=== PATIENT | female | born 1940 | race Caucasian/White ===

== ENCOUNTER 2016-11-20 22:34 | Observation (INO) | payer MEDICARE, BC ==
[2016-11-20] MEDS ORDERED: diphenhydrAMINE 50 MG/ML SDV IVPUSH ONE (22:39)
[2016-11-20] MEDS ORDERED: methylPREDNISolone Sodium Succinate 125 MG/2 ML SDV IVPUSH ONE (22:40)
[2016-11-20] MEDS ORDERED: Famotidine 20 MG/2 ML SDV IVPUSH ONE (22:57)
--- NOTE | 2016-11-20 23:03 | EDM.PDOC ---
ED HPI GENERAL MEDICAL PROBLEM - General Chief Complaint: General Stated Complaint: swollen tongue Time Seen by Provider: 11/20/16 22:40 Source of Information: Reports: Patient, Family History Limitations: Reports: No Limitations - History of Present Illness INITIAL COMMENTS - FREE TEXT/NARRATIVE: 75 YO WF presents to ER with swelling to right side of tongue which began 5pm tonight. Pt reports no difficulty breathing or swallowing but her tongue feels "full". Pt is currently on Diovan for Htn. Pt denies any trauma to tongue. Denies fever/chills Onset Date: 11/20/16 Onset Time: 17:00 Duration: Hour(s): (6) Location: Reports: Other (tongue) Severity: Moderate Improves with: Reports: None Worsens with: Reports: None Associated Symptoms: Reports: No Other Symptoms. Denies: Shortness of Breath - Related Data Allergies Allergy/AdvReac Type Severity Reaction Status Date / Time latex Allergy Hives Verified 11/20/16 23:09 lisinopril Allergy Hives Verified 11/20/16 23:09 Sulfa (Sulfonamide Allergy Hives Verified 11/20/16 23:09 Antibiotics) Home Meds: Home Meds Allopurinol [Zyloprim] 200 mg PO DAILY@209905/04/15 [History] Aspirin [Halfprin] 81 mg PO DAILY@209905/04/15 [History] Calcitriol [Rocaltrol] 0.25 mcg PO BEDTIME 05/04/15 [History] Dialyvite/Zinc Tablets 1 tab PO DAILY@209905/04/15 [History] Diltiazem [Cardizem CD] 120 mg PO DAILY@209905/04/15 [History] Ferrous Sulfate [Iron] 325 mg PO DAILY@209905/04/15 [History] Pravastatin Sodium [Pravastatin (Pravachol)] 40 mg PO DAILY@209905/04/15 [ History] Docusate Sodium [Colace] 100 mg PO DAILY #90 cap 05/07/15 [Rx] Fluocinonide [Lidex 0.05% Crm] 1 applic TOP BID PRN 02/23/16 [History] Warfarin [Coumadin] 1.25 mg PO MO@179902/23/16 [History] Warfarin [Coumadin] 2.5 mg PO SUTUWETHFRSA@179902/23/16 [History] Acetaminophen [Tylenol Arthritis Pain] 650 mg PO Q8H #180 tab.er 03/08/16 [Rx] traMADol [Ultram] 1 tab PO BID PRN #60 tablet 03/08/16 [Rx] Carvedilol [Carvedilol] 3.125 mg PO BID 11/20/16 [History] Methyl Salicylate/Menthol [Salonpas Patch] 1 each TP DAILY 11/20/16 [History] Phytonadione [Vitamin K] 200 mcg PO DAILY 11/20/16 [History] Sertraline HCl [Zoloft] 50 mg PO DAILY 11/20/16 [History] Valsartan [Diovan] 20 mg PO DAILY 11/20/16 [History] glipiZIDE [Glucotrol XL] 2.5 mg PO DAILY@1800 11/20/16 [History] Past Medical History HEENT History: Reports: Hard of Hearing, Impaired Vision, Macular Degeneration Cardiovascular History: Reports: Afib, Aneurysm, High Cholesterol, Hypertension , Other (See Below) Other Cardiovascular History: edema Gastrointestinal History: Reports: Chronic Constipation Genitourinary History: Reports: Acute Renal Failure, Chronic Renal Insuffiency, Dialysis, Renal Calculus Musculoskeletal History: Reports: Arthritis, Back Pain, Chronic Endocrine/Metabolic History: Reports: Diabetes, Type II, Hyperparathyroidism Hematologic History: Reports: Anemia, Blood Transfusion(s) Dermatologic History: Reports: Eczema - Infectious Disease History Infectious Disease History: Reports: Chicken Pox, Measles, Mumps - Past Surgical History Cardiovascular Surgical History: Reports: AAA Repair Female Surgical History: Reports: Hysterectomy, Lithotripsy/ESWL, Salpingo- Oophorectomy Social & Family History - Family History Family Medical History: Noncontributory - Tobacco Use Smoking Status *Q: Former Smoker Years of Tobacco use: 50 Packs/Tins Daily: 1.5 Used Tobacco, but Quit: Yes Month Tobacco Last Used: 2008 Second Hand Smoke Exposure: No - Caffeine Use Caffeine Use: Reports: Soda - Recreational Drug Use Recreational Drug Use: No ED ROS GENERAL - Review of Systems Review Of Systems: See Below Constitutional: Reports: No Symptoms HEENT: Reports: Other (tongue swelling). Denies: Throat Pain, Throat Swelling Cardiovascular: Reports: No Symptoms Endocrine: Reports: No Symptoms GI/Abdominal: Reports: No Symptoms : Reports: No Symptoms Musculoskeletal: Reports: No Symptoms Skin: Reports: No Symptoms Neurological: Reports: No Symptoms Psychiatric: Reports: No Symptoms Hematologic/Lymphatic: Reports: No Symptoms Immunologic: Reports: No Symptoms ED EXAM, GENERAL - Physical Exam Exam: See Below Exam Limited By: No Limitations General Appearance: Alert, WD/WN, No Apparent Distress Ears: Normal External Exam, Normal Canal, Hearing Grossly Normal, Normal TMs Nose: Normal Inspection, Normal Mucosa, No Blood Throat/Mouth: Normal Lips, Normal Teeth, Normal Gums, No Airway Compromise, Inflammation (swelling to uvula, and right side of tongue). No: Normal Inspection, Normal Oropharynx Head: Atraumatic, Normocephalic Neck: Normal Inspection, Supple, Non-Tender, Full Range of Motion Respiratory/Chest: No Respiratory Distress, Lungs Clear, Normal Breath Sounds, No Accessory Muscle Use, Chest Non-Tender. No: Decreased Breath Sounds, Rhonchi , Stridor, Accessory Muscle Use Cardiovascular: Normal Peripheral Pulses, Regular Rate, Rhythm, No Edema, No Gallop, No JVD, No Murmur, No Rub GI/Abdominal: Normal Bowel Sounds, Soft, Non-Tender, No Organomegaly, No Distention, No Abnormal Bruit, No Mass Back Exam: Normal Inspection, Full Range of Motion, NT Extremities: Normal Inspection, Normal Range of Motion, Non-Tender, Normal Capillary Refill, No Pedal Edema Neurological: Alert, Oriented, CN II-XII Intact, Normal Cognition, Normal Gait, Normal Reflexes, No Motor/Sensory Deficits Psychiatric: Normal Affect, Normal Mood Skin Exam: Warm, Dry, Intact, Normal Color, No Rash Course - Vital Signs Last Recorded V/S: Last Vital Signs Temp 36.1 C 11/20/16 23:04 Pulse 74 11/20/16 23:04 Resp 16 11/20/16 23:04 BP 106/106 H 11/20/16 23:04 Pulse Ox 97 11/20/16 23:04 - Orders/Labs/Meds Meds: Medications Discontinued Medications Generic Name Dose Route Start Last Admin Trade Name Freq PRN Reason Stop Dose Admin Diphenhydramine HCl 50 mg 11/20/16 22:39 11/20/16 23:03 Benadryl IVPUSH 11/20/16 22:40 50 mg ONETIME ONE Administration Epinephrine HCl 1 mg 11/20/16 23:18 Adrenalin 1:1000 IVPUSH 11/20/16 23:19 NOW ONE Epinephrine HCl 0.3 mg 11/20/16 23:24 Epipen IM 11/20/16 23:25 ONETIME ONE Epinephrine HCl Confirm 11/20/16 23:24 Epipen Administered 11/20/16 23:25 Dose 0.3 mg .ROUTE .STK-MED ONE Famotidine 20 mg 11/20/16 22:57 11/20/16 23:00 Pepcid IVPUSH 11/20/16 22:58 20 mg ONETIME ONE Administration Methylprednisolone Sodium Succinate 125 mg 11/20/16 22:40 11/20/16 23:03 Solu-Medrol IVPUSH 11/20/16 22:41 125 mg ONETIME ONE Administration Departure - Departure Time of Disposition: 23:49 Disposition: Refer to Observation Condition: Fair Clinical Impression: Angioedema Qualifiers: Encounter type: initial encounter Qualified Code(s): T78.3XXA - Angioneurotic edema, initial encounter Hypertension Qualifiers: Hypertension type: essential hypertension Qualified Code(s): I10 - Essential ( primary) hypertension - Discharge Information Forms: ED Department Discharge - Assessment/Plan Assessment:: 1. angioedema Plan: 1. admit to Dr Donohue for observation due to tongue swelling 2. nitro for blood pressure control
[2016-11-20] MEDS ORDERED: EPINEPHrine 1 MG/ML 30 ML MDV IVPUSH ONE (23:18)
[2016-11-20] MEDS ORDERED: EPINEPHrine 0.3 MG/0.3 ML Pen Autoinjector IM ONE (23:24)
[2016-11-20] MEDS ORDERED: EPINEPHrine 0.3 MG/0.3 ML Pen Autoinjector ONE (23:24)
[2016-11-20] MEDS ORDERED: Sodium Chloride 0.9% 1,000 ML IV SCH (23:45)
[2016-11-20] MEDS ORDERED: Nitroglycerin 2% Oint 1 GM UD Packet ONE (23:46)
[2016-11-20] MEDS ORDERED: Sodium Chloride 0.9% 5 ML Syringe FLUSH PRN (23:51)
[2016-11-20] MEDS ORDERED: Nitroglycerin 0.4 MG Tab.SL SL PRN (23:55)
[2016-11-21] MEDS: Nitroglycerin 2% Oint 1 GM UD Packet TOP PRN ×2 (00:02→07:46)
[2016-11-21] MEDS ORDERED: Atropine 0.1 MG/ML 10 ML Syringe IVPUSH PRN (08:47)
[2016-11-21] MEDS ORDERED: EPINEPHrine 1:10,000 1 MG/10 ML Syringe IVPUSH PRN (08:47)
[2016-11-21] MEDS ORDERED: Nitroglycerin 0.4 MG Tab.SL SL PRN (08:47)
[2016-11-21] MEDS ORDERED: Lidocaine 2% 100 MG/5 ML Syringe IVPUSH PRN (08:47)
[2016-11-21] MEDS ORDERED: Labetalol 100 MG/20 ML MDV IVPUSH ONE ×2 (10:10→10:15)
[2016-11-21] MEDS ORDERED: traMADol 50 MG Tab PO PRN (12:33)
--- NOTE | 2016-11-21 12:40 | PCM.HP ---
H&P History of Present Illness - General Date of Service: 11/21/16 Source of Information: Patient, Provider, RN, Significant Other History Limitations: Reports: No Limitations - History of Present Illness Initial Comments - Free Text/Narative: This 75-year-old female who is a resident of a long-term care center was admitted due to angioedema. Patient stated she had significant swelling of her tongue early evening last night however no stridor or difficulty breathing. He is currently on ARB for hypertension along with beta alejandro. Had no fever or chills and no aspiration. In the ED she was given epinephrine, diphenhydramine hydrochloride, H2 Pepcid with good results. She was admitted observation. She does have a history of hypertension in which she is being followed closely by nephrology. Back Pain Score (Numeric/FACES): 3 - Related Data Allergies/Adverse Reactions: Allergies Allergy/AdvReac Type Severity Reaction Status Date / Time latex Allergy Hives Verified 11/20/16 23:09 lisinopril Allergy Hives Verified 11/20/16 23:09 Sulfa (Sulfonamide Allergy Hives Verified 11/20/16 23:09 Antibiotics) Home Medications: Home Meds Allopurinol [Zyloprim] 100 mg PO DAILY@209905/04/15 [History] Aspirin [Halfprin] 81 mg PO DAILY@209905/04/15 [History] Calcitriol [Rocaltrol] 0.25 mcg PO MOWEFR@89905/04/15 [History] Dialyvite/Zinc Tablets 1 tab PO DAILY@209905/04/15 [History] Ferrous Sulfate [Iron] 325 mg PO DAILY 05/04/15 [History] Pravastatin Sodium [Pravastatin (Pravachol)] 40 mg PO DAILY 05/04/15 [History] Docusate Sodium [Colace] 100 mg PO DAILY #90 cap 05/07/15 [Rx] Fluocinonide [Lidex 0.05% Crm] 1 applic TOP BID PRN 02/23/16 [History] Warfarin [Coumadin] 2.5 mg PO SUTUTHSA@1800 02/23/16 [History] Warfarin [Coumadin] 5 mg PO MOWEFR@179902/23/16 [History] Acetaminophen [Tylenol Arthritis Pain] 650 mg PO Q8H #180 tab.er 03/08/16 [Rx] Carvedilol 3.125 mg PO BIDMEALS 11/20/16 [History] Methyl Salicylate/Menthol [Salonpas Patch] 1 each TP DAILY 11/20/16 [History] Phytonadione [Vitamin K] 200 mcg PO DAILY 11/20/16 [History] Sertraline HCl [Zoloft] 50 mg PO DAILY 11/20/16 [History] Vits A and D/White Pet/Lanolin [A and D Ointment] 1 applic TOP DAILY 11/21/16 [ History] glipiZIDE [Glucotrol] 2.5 mg PO DAILY@1800 11/21/16 [History] traMADol [Ultram] 50 mg PO BID PRN 11/21/16 [History] Diltiazem [Cardizem CD] 180 mg PO DAILY #30 11/22/16 [Rx] Past Medical History HEENT History: Reports: Hard of Hearing, Impaired Vision, Macular Degeneration Cardiovascular History: Reports: Afib, Aneurysm, High Cholesterol, Hypertension , Other (See Below) Other Cardiovascular History: edema Gastrointestinal History: Reports: Chronic Constipation Genitourinary History: Reports: Acute Renal Failure, Chronic Renal Insuffiency, Dialysis, Renal Calculus Musculoskeletal History: Reports: Arthritis, Back Pain, Chronic Endocrine/Metabolic History: Reports: Diabetes, Type II, Hyperparathyroidism Hematologic History: Reports: Anemia, Blood Transfusion(s) Dermatologic History: Reports: Eczema - Infectious Disease History Infectious Disease History: Reports: Chicken Pox, Measles, Mumps - Past Surgical History Head Surgeries/Procedures: Reports: None Cardiovascular Surgical History: Reports: AAA Repair Female Surgical History: Reports: Hysterectomy, Lithotripsy/ESWL, Salpingo- Oophorectomy Social & Family History - Family History Cardiac: Reports: None Respiratory: Reports: None GI: Reports: None : Reports: Other (See Below) (Sister with unknown type of renal disease) OBGYN: Reports: None Musculoskeletal: Reports: None Neurological: Reports: None Psychiatric: Reports: None Endocrine/Metabolic: Reports: Diabetes, type II, Other (See Below) (Both father and sister has/had diabetes, sister still alive,) Hematologic: Reports: None Immunologic: Reports: None Oncologic: Reports: Other (See Below) (Sister with cancer of unknown etiology/ type) - Tobacco Use Smoking Status *Q: Former Smoker Years of Tobacco use: 50 Packs/Tins Daily: 1.5 Used Tobacco, but Quit: Yes Month Tobacco Last Used: 2008 Second Hand Smoke Exposure: No - Caffeine Use Caffeine Use: Reports: Soda - Recreational Drug Use Recreational Drug Use: No H&P Review of Systems - Review of Systems: Review Of Systems: See Below General: Reports: No Symptoms HEENT: Denies: Dysphasia, Headaches, Vertigo, Visual Changes Pulmonary: Reports: No Symptoms Cardiovascular: Reports: No Symptoms Gastrointestinal: Reports: No Symptoms Genitourinary: Reports: No Symptoms Musculoskeletal: Reports: No Symptoms Skin: Reports: No Symptoms Psychiatric: Reports: Depression Neurological: Reports: No Symptoms Hematologic/Lymphatic: Reports: No Symptoms Immunologic: Reports: No Symptoms Exam - Exam Exam: See Below - Vital Signs Vital Signs: Last Vital Signs Temp 96 F 11/21/16 11:00 Pulse 76 11/21/16 11:00 Resp 18 11/21/16 11:00 BP 158/82 H 11/21/16 11:43 Pulse Ox 93 L 11/21/16 11:00 Weight: 187 lb - Exam Quality Assessment: No: Supplemental Oxygen General: Alert, Oriented, Cooperative. No: Mild Distress HEENT: Mucosa Moist & Dows Neck: Supple Lungs: Clear to Auscultation, Normal Respiratory Effort Cardiovascular: Regular Rate, Regular Rhythm GI/Abdominal Exam: Normal Bowel Sounds, Soft, Non-Tender, No Organomegaly, No Distention, No Abnormal Bruit, No Mass, Pelvis Stable (Female) Exam: Deferred Neuro Extensive - Mental Status: Alert, Oriented x3, Memory Intact, Other (Flat affect). No: Normal Mood/Affect Neuro Extensive - Motor, Sensory, Reflexes: CN II-XII Intact Psychiatric: Alert, Depressed, Other (Flat affect, chronic for patient). No: Normal Affect - Patient Data Lab Results Last 24 hrs: Laboratory Results - last 24 hr 11/21/16 11/21/16 11/21/16 Range/Units 07:50 07:50 07:50 WBC 11.4 H (5.0-10.0) 10^3/uL RBC 4.08 (3.80-5.50) 10^6/uL Hgb 12.0 (12.0-16.0) g/dL Hct 36.3 L (37.0-47.0) % MCV 88.9 (82.0-92.0) fL MCH 29.4 (27.0-31.0) pg MCHC 33.1 (32.0-36.0) g/dL RDW 16.1 H (11.5-14.5) % Plt Count 332 H (150-300) 10^3/uL MPV 7.2 L (7.4-10.4) fL Neut % (Auto) 95.2 H (50.0-70.0) % Lymph % (Auto) 3.3 L (20.0-40.0) % Briscoe % (Auto) 0.3 L (2.0-8.0) % Eos % (Auto) 0.2 L (1.0-3.0) % Baso % (Auto) 1.0 (0.0-1.0) % Neut # (Auto) 10.9 H (2.5-7.0) 10^3/uL Lymph # (Auto) 0.4 L (1.0-4.0) 10^3/uL Briscoe # (Auto) 0.0 L (0.1-0.8) 10^3/uL Eos # (Auto) 0.0 L (0.1-0.3) 10^3/uL Baso # (Auto) 0.1 (0.0-0.1) 10^3/uL PT 12.5 H (8.9-11.4) SEC INR 1.2 H (0.9-1.1) Sodium 139 (136-145) mmol/L Potassium 4.3 (3.3-5.3) mmol/L Chloride 101 (98-115) mmol/L Carbon Dioxide 24.0 (21.0-32.0) mmol/L BUN 30 H (6-25) mg/dL Creatinine 1.51 H (0.51-1.17) mg/dL Est Cr Clr Drug Dosing 27.04 mL/min Estimated GFR (MDRD) 34 mL/min Glucose 238 H (70-110) mg/dL Calcium 9.7 (8.7-10.3) mg/dL Result Diagrams: 11/21/16 07:50 11/21/16 07:50 *Q Meaningful Use (ADM) - VTE *Q VTE Criteria *Q: - Stroke *Q Stroke Criteria *Q: - AMI *Q AMI Criteria *Q: Problem List Initiated/Reviewed/Updated: Yes Orders Last 24hrs: Active Orders 24 hr Category Date Time Status Atropine [Atropine 0.1 MG/ML] Med 11/21/16 08:47 Active 0 mg IVPUSH ASDIRECTED PRN EPINEPHrine [EPINEPHrine 1:10,000] Med 11/21/16 08:47 Active 1 mg IVPUSH ASDIRECTED PRN Lidocaine 2% [Xylocaine 2%] Med 11/21/16 08:47 Active 0 mg IVPUSH ASDIRECTED PRN Nitroglycerin [Nitrostat] Med 11/21/16 08:47 Active 0.4 mg SL ASDIRECTED PRN Medication Orders Atropine Sulfate (Atropine 0.1 Mg/Ml) 0 mg IVPUSH ASDIRECTED PRN PRN Reason: Heart Epinephrine HCl (Epinephrine 1:10,000) 1 mg IVPUSH ASDIRECTED PRN PRN Reason: Heart Sodium Chloride (Normal Saline) 1,000 mls @ 100 mls/hr IV ASDIRECTED JOHANN Last Admin: 11/21/16 02:45 Dose: 100 mls/hr Lidocaine HCl (Xylocaine 2%) 0 mg IVPUSH ASDIRECTED PRN PRN Reason: Heart Nitroglycerin (Nitro-Bid 2%) 1 gm TOP Q6H PRN PRN Reason: Chest Pain Last Admin: 11/21/16 07:46 Dose: 1 gm Admin: 11/21/16 00:02 Dose: 1 gm Nitroglycerin (Nitrostat) 0.4 mg SL Q5M PRN PRN Reason: Chest Pain Nitroglycerin (Nitrostat) 0.4 mg SL ASDIRECTED PRN PRN Reason: Heart Sodium Chloride (Syrex Flush) 5 ml FLUSH Q8HR PRN PRN Reason: Keep Vein Open Assessment/Plan Comment:: HISTORY This 75-year-old female who is a resident of a long-term care center was admitted due to angioedema. Patient stated she had significant swelling of her tongue early evening last night however no stridor or difficulty breathing. He is currently on ARB for hypertension along with beta alejandro. Had no fever or chills and no aspiration. In the ED she was given epinephrine, diphenhydramine hydrochloride, H1 Pepcid with good results. She was admitted observation. She does have a history of hypertension in which she is being followed closely by nephrology. Patient needed ongoing care after arrival to the floor and on rounds this morning including IV labetalol push due to extreme hypertension systolic blood pressure greater than 200. Impression/plan Angioedema, much improvement, hold ARB for now, monitor for any airway compromise. No uticaria Hypertension, significant elevation, some improvement with IV labetalol-- careful monitoring needed due to the need for possible concomittant coadministration of epinephrine with beta alejandro. Blood pressure controlled very important due to history of aneurysm (AAA). Continue with CCB Atrial fibrillation, chronic, anticoagulation of Coumadin, CVR, INR subtherapeutic 1.2. She receives concomittant Vit K. increased Coumadin tonight Other chronic medical conditions Diabetes mellitus, on glipizide low-dose, Depression, fairly controlled with Zoloft, Hyperlipidemia, on statin therapy, Peripheral vascular disease Macular degeneration, Chronic renal insufficiency, Osteoarthritis with chronic back pain, Overall plan today, we'll keep in observation today due to possible airway compromise, monitoring of angioedema, and medications to control hypertensive, increase Coumadin the night due to subtherapeutic INR
[2016-11-21] MEDS: Acetaminophen 650 MG Tab.ER PO SCH ×2 (13:25→22:00)
[2016-11-21] MEDS: Diltiazem 120 MG Cap.CD PO SCH (13:27)
[2016-11-21] MEDS: Sertraline 50 MG Tab PO SCH (13:27)
[2016-11-21] MEDS: Docusate Sodium 100 MG Cap PO SCH (13:27)
[2016-11-21] MEDS ORDERED: glipiZIDE 5 MG Tab PO SCH (18:00)
[2016-11-21] MEDS ORDERED: Warfarin 5 MG Tab PO SCH (18:00)
[2016-11-21] MEDS: Carvedilol 6.25 MG Tab PO SCH (18:25)
[2016-11-21] MEDS ORDERED: Simvastatin 20 MG Tab PO SCH (21:00)
[2016-11-21] MEDS ORDERED: Aspirin 81 MG Tab.EC PO SCH (21:00)
[2016-11-21] MEDS ORDERED: Allopurinol 100 MG Tab PO SCH (21:00)
[2016-11-22] MEDS: Acetaminophen 650 MG Tab.ER PO SCH (05:45)
[2016-11-22] MEDS ORDERED: Trolamine Salicylate/Aloe Vera 10% Crm 85 GM Tube TOP PRN (09:00)
[2016-11-22] MEDS ORDERED: Phytonadione 100 MCG Tab PO SCH (09:00)
[2016-11-22] MEDS ORDERED: Calcitriol 0.25 MCG Cap PO SCH (09:00)
[2016-11-22] MEDS ORDERED: Diltiazem 120 MG Cap.CD PO SCH (09:05)
[2016-11-22] MEDS: Docusate Sodium 100 MG Cap PO SCH (09:54)
[2016-11-22] MEDS: Carvedilol 6.25 MG Tab PO SCH (09:54)
[2016-11-22] MEDS: Sertraline 50 MG Tab PO SCH (09:55)
[2016-11-22] MEDS: Diltiazem 120 MG Cap.CD PO SCH (10:56)
[2016-11-22 13:28] VITALS: BP 153/86
--- NOTE | 2016-11-23 07:58 | DISCH ---
FINAL DIAGNOSES: 1. Angioedema, likely angiotensin receptor alejandro induced, much improved; angiotensin receptor alejandro discontinued, increased calcium channel alejandro. 2. Hypertension, some improvement with increase in calcium channel alejandro, angiotensin receptor alejandro now discontinued. OTHER CHRONIC MEDICAL CONDITIONS: 1. Atrial fibrillation, chronic. She is on anticoagulation CVR. INR therapeutic on anticoagulation. 2. Diabetes mellitus, on low-dose glipizide. 3. Depression, fairly controlled with Zoloft. 4. Hyperlipidemia, she is on statin therapy. 5. Peripheral vascular disease. 6. Macular degeneration. 7. Chronic renal insufficiencies and osteoarthritis along with chronic back pain. HISTORY: This 75-year-old female who is a resident of [facility], [place] was admitted due to angioedema. The patient started having significant swelling of her tongue, and she was admitted. Her spouse had noticed that she was talking funny, and he alerted staff at the skilled nursing, and they brought her into the ED. She never had any difficulty breathing or excessive saliva. However, she was treated in the emergency department with diphenhydramine hydrochloride along with epinephrine. She was currently on losartan for hypertension along with beta alejandro that was discontinued as the offending agent. Her swelling went down. She had no fever or chills. No aspiration. She was also given H1 agent of Pepcid. She had good results. She was admitted in observation. She would have been discharged sooner; however, she did have an acute elevation of her blood pressure around 200 systolically, which needed IV labetalol. HOSPITAL COURSE: Hospital course went well. Other than hypertension, she was asymptomatic. No chest pain, no visual acuity, no headaches, no end-organ damage. She was given 20 mg one time of IV labetalol. Her calcium channel alejandro was increased from 120 to 180 mg daily. Her ARB of losartan was discontinued as likely offending agent. She never had any increase in swelling of her tongue since the initial treatment out of the emergency department. LABORATORY DATA: White count slightly elevated at 11.4, non-concerning. INR was subtherapeutic at 1.2, she did have an increase in doses of Coumadin, this will have to be rechecked. Sodium 139, potassium 4.3, BUN 30 with creatinine of 1.51, calcium 9.7. CONSULTATIONS: We will consult with Nephrology regarding opinion on ARB causing angioedema and any other concerns or medication adjustments that may be needed. This information will be communicated to the nursing staff at the skilled nursing. She can be followed up next week with provider over there on rounds. MEDICAL DECISION MAKIN minutes was spent on this discharge planning and process and consultation care coordination. PHYSICAL EXAM ON DISCHARGE: VITAL SIGNS: On discharge, blood pressure improved to 159/86, however, not optimal. Temperature 97.4, heart rate 70, respiratory rate 20. GENERAL: The patient is alert and oriented. Flat affect, which is chronic for her. LUNGS: Clear to auscultation. CARDIOVASCULAR: Irregular rate. EXTREMITIES: No edema in extremities. ABDOMEN: Good bowel tones. HEENT: Tongue, normal parameters. Normal uvula. No lymphadenopathy. MEDICATION ADJUSTMENTS: Discontinued ARB, increased calcium channel alejandro from 120 to 180 mg daily. She can continue on all other home medications. DISPOSITION: The patient will be discharged back to the [facility] Center. Coumadin Clinic will manage the INR, and make any adjustments. INR level prior to her leaving the hospital will be reassessed. They are supposed to report any recurrence of signs of angioedema such as edema to her face, eyes or swelling of her tongue or any stridor, wheezing, excessive saliva. Monitor ongoing vital signs. /[id number]/MODL
== END 2016-11-22 13:15 | disposition home or self-care (01) ==
LOC: KA.ED 22:34 → KA.MS 11-21 00:10
PROVIDERS: ADMIT Family Medicine; ATTEND Family Medicine
DX: T78.3XXA Angioneurotic edema, initial encounter (principal); E11.22 Type 2 diabetes mellitus with diabetic chronic kidney disease; I12.9 Hypertensive chronic kidney disease with stage 1 through stage 4 chronic kidney disease, or unspecified chronic kidney disease; N18.9 Chronic kidney disease, unspecified; F32.9 Major depressive disorder, single episode, unspecified; I48.2 Chronic atrial fibrillation; E78.5 Hyperlipidemia, unspecified; I73.9 Peripheral vascular disease, unspecified; H35.30 Unspecified macular degeneration; Z88.2 Allergy status to sulfonamides; Z88.8 Allergy status to other drugs, medicaments and biological substances; Z91.040 Latex allergy status; Z79.82 Long term (current) use of aspirin; Z79.01 Long term (current) use of anticoagulants; Z79.899 Other long term (current) drug therapy; Z90.710 Acquired absence of both cervix and uterus; Z98.890 Other specified postprocedural states; Z87.891 Personal history of nicotine dependence
CPT/HCPCS: 36415; 80048; 85025; 85610; 96372; 96374; 96375; 99284; A9270; G0378; J1200; J2930; J7030; S0028

== ENCOUNTER 2017-02-13 10:20 | Inpatient (IN) | payer MEDICARE, BC ==
[2017-02-13] MEDS ORDERED: traMADol 50 MG Tab PO PRN (16:52)
[2017-02-13] MEDS: Acetaminophen 650 MG Tab.ER PO SCH (19:59)
[2017-02-13] MEDS: glipiZIDE 5 MG Tab PO SCH (19:59)
[2017-02-13] MEDS: Phytonadione 100 MCG Tab PO SCH (20:01)
[2017-02-13] MEDS: Warfarin 5 MG Tab PO SCH (20:01)
[2017-02-13] MEDS: Carvedilol 6.25 MG Tab PO SCH (20:01)
[2017-02-13] MEDS: Allopurinol 100 MG Tab PO SCH (20:05)
[2017-02-13] MEDS: [UNRECOGNIZED DRUG - OTHER] PO SCH (20:05)
[2017-02-13] MEDS: Diltiazem 180 MG Cap.CD PO SCH (20:06)
[2017-02-13] MEDS ORDERED: Ferrous Sulfate 325 MG Tab PO SCH (21:00)
[2017-02-13] MEDS ORDERED: Aspirin 81 MG Tab.EC PO SCH (21:00)
[2017-02-13] MEDS ORDERED: Sertraline 50 MG Tab PO SCH (21:00)
[2017-02-13] MEDS: Sodium Chloride 0.9% 1,000 ML IV SCH (22:00)
[2017-02-13] MEDS: REMOVE SALONPAS TRDERM SCH (22:30)
[2017-02-14] MEDS: Sodium Chloride 0.9% 1,000 ML IV SCH ×2 (06:56→19:37)
[2017-02-14] MEDS: Carvedilol 6.25 MG Tab PO SCH ×2 (08:25→18:14)
[2017-02-14] MEDS ORDERED: Vitamins A and D Oint 113 GM Tube TOP SCH (09:00)
[2017-02-14] MEDS ORDERED: Docusate Sodium 100 MG Cap PO SCH (09:00)
--- NOTE | 2017-02-14 10:27 | PCM.PN ---
- General Info Date of Service: 02/14/17 Functional Status: Reports: Pain Controlled, Tolerating Diet, Urinating, New Symptoms (Cough, slightly productive, ). Denies: Ambulating - Review of Systems General: Reports: Weakness. Denies: Fever HEENT: Reports: No Symptoms Pulmonary: Reports: Cough. Denies: Shortness of Breath, Pleuritic Chest Pain, Sputum Cardiovascular: Reports: No Symptoms Gastrointestinal: Reports: Decreased Appetite. Denies: Abdominal Pain, Constipation, Diarrhea, Nausea, Vomiting Genitourinary: Reports: Dysuria Musculoskeletal: Reports: No Symptoms Skin: Reports: No Symptoms Neurological: Reports: Difficulty Walking, Weakness. Denies: Confusion, Dizziness, Headache, Numbness, Trouble Speaking, Change in Speech - Patient Data Vitals - Most Recent: Last Vital Signs Temp 96.0 F 02/14/17 06:17 Pulse 62 02/14/17 06:17 Resp 18 02/14/17 06:17 BP 144/72 H 02/14/17 06:17 Pulse Ox 94 L 02/14/17 06:17 Weight - Most Recent: 182 lb 6.4 oz I&O - Last 24 Hours: Intake & Output 02/13/17 02/14/17 02/14/17 22:59 06:59 14:59 Intake Total 270 1948 Balance 270 1948 Lab Results Last 24 Hours: Laboratory Results - last 24 hr 02/13/17 02/13/17 02/13/17 Range/Units 11:10 11:10 11:10 WBC 13.3 H (5.0-10.0) 10^3/uL RBC 2.87 L (3.80-5.50) 10^6/uL Hgb 7.8 L (12.0-16.0) g/dL Hct 25.7 L (37.0-47.0) % MCV 89.5 (82.0-92.0) fL MCH 27.1 (27.0-31.0) pg MCHC 30.3 L (32.0-36.0) g/dL RDW 18.9 H (11.5-14.5) % Plt Count 324 H (150-300) 10^3/uL MPV 6.8 L (7.4-10.4) fL Neut % (Auto) 81.0 H (50.0-70.0) % Lymph % (Auto) 8.5 L (20.0-40.0) % Floyd % (Auto) 4.9 (2.0-8.0) % Eos % (Auto) 4.7 H (1.0-3.0) % Baso % (Auto) 0.9 (0.0-1.0) % Neut # (Auto) 10.8 H (2.5-7.0) 10^3/uL Lymph # (Auto) 1.1 (1.0-4.0) 10^3/uL Floyd # (Auto) 0.7 (0.1-0.8) 10^3/uL Eos # (Auto) 0.6 H (0.1-0.3) 10^3/uL Baso # (Auto) 0.1 (0.0-0.1) 10^3/uL PT 23.3 H (8.9-11.4) SEC INR 2.3 H (0.9-1.1) Sodium 141 (136-145) mmol/L Potassium 3.5 (3.3-5.3) mmol/L Chloride 103 (98-115) mmol/L Carbon Dioxide 25.9 (21.0-32.0) mmol/L BUN 65 H* (6-25) mg/dL Creatinine 2.60 H (0.51-1.17) mg/dL Est Cr Clr Drug Dosing 15.46 mL/min Estimated GFR (MDRD) 18 mL/min Glucose 208 H (70-110) mg/dL POC Glucose (74-106) mg/dl Calcium 9.2 (8.7-10.3) mg/dL Total Bilirubin 0.3 (0.2-1.0) mg/dL AST 22 (15-37) U/L ALT 23 (12-78) U/L Alkaline Phosphatase 71 (46-116) IU/L Total Protein 7.2 (6.4-8.2) g/dL Albumin 3.07 (3.00-4.80) g/dL Specimen Type Urine Color (YELLOW) Urine Appearance (CLEAR) Urine pH (5.0-9.0) Ur Specific Sidney (1.005-1.030) Urine Protein (NEGATIVE) mg/dL Urine Glucose (UA) (NEGATIVE) mg/dL Urine Ketones (NEGATIVE) mg/dL Urine Occult Blood (NEGATIVE) Urine Nitrite (NEGATIVE) Urine Bilirubin (NEGATIVE) Urine Urobilinogen (0.2-1.0) E.U./dL Ur Leukocyte Esterase (NEGATIVE) Urine RBC /HPF Urine WBC /HPF Ur Epithelial Cells /LPF Urine Bacteria (NONE TO FEW) /HPF Blood Type Gel Antibody Screen Crossmatch 02/13/17 02/13/17 02/13/17 Range/Units 11:10 16:51 18:20 WBC (5.0-10.0) 10^3/uL RBC (3.80-5.50) 10^6/uL Hgb (12.0-16.0) g/dL Hct (37.0-47.0) % MCV (82.0-92.0) fL MCH (27.0-31.0) pg MCHC (32.0-36.0) g/dL RDW (11.5-14.5) % Plt Count (150-300) 10^3/uL MPV (7.4-10.4) fL Neut % (Auto) (50.0-70.0) % Lymph % (Auto) (20.0-40.0) % Floyd % (Auto) (2.0-8.0) % Eos % (Auto) (1.0-3.0) % Baso % (Auto) (0.0-1.0) % Neut # (Auto) (2.5-7.0) 10^3/uL Lymph # (Auto) (1.0-4.0) 10^3/uL Floyd # (Auto) (0.1-0.8) 10^3/uL Eos # (Auto) (0.1-0.3) 10^3/uL Baso # (Auto) (0.0-0.1) 10^3/uL PT (8.9-11.4) SEC INR (0.9-1.1) Sodium (136-145) mmol/L Potassium (3.3-5.3) mmol/L Chloride (98-115) mmol/L Carbon Dioxide (21.0-32.0) mmol/L BUN (6-25) mg/dL Creatinine (0.51-1.17) mg/dL Est Cr Clr Drug Dosing mL/min Estimated GFR (MDRD) mL/min Glucose (70-110) mg/dL POC Glucose 127 H (74-106) mg/dl Calcium (8.7-10.3) mg/dL Total Bilirubin (0.2-1.0) mg/dL AST (15-37) U/L ALT (12-78) U/L Alkaline Phosphatase (46-116) IU/L Total Protein (6.4-8.2) g/dL Albumin (3.00-4.80) g/dL Specimen Type Urinvoid Urine Color Yellow (YELLOW) Urine Appearance Cloudy H (CLEAR) Urine pH 5.0 (5.0-9.0) Ur Specific Sidney 1.010 (1.005-1.030) Urine Protein 100 H (NEGATIVE) mg/dL Urine Glucose (UA) Negative (NEGATIVE) mg/dL Urine Ketones Negative (NEGATIVE) mg/dL Urine Occult Blood Trace-intact H (NEGATIVE) Urine Nitrite Negative (NEGATIVE) Urine Bilirubin Negative (NEGATIVE) Urine Urobilinogen 0.2 (0.2-1.0) E.U./dL Ur Leukocyte Esterase Large H (NEGATIVE) Urine RBC 5-10 H /HPF Urine WBC 40-50 H /HPF Ur Epithelial Cells Many H /LPF Urine Bacteria Many H (NONE TO FEW) /HPF Blood Type A POSITIVE Gel Antibody Screen Negative Crossmatch See Detail 02/14/17 02/14/17 02/14/17 Range/Units 06:18 07:10 07:10 WBC 9.5 (5.0-10.0) 10^3/uL RBC 2.61 L (3.80-5.50) 10^6/uL Hgb 7.2 L (12.0-16.0) g/dL Hct 23.7 L (37.0-47.0) % MCV 90.7 (82.0-92.0) fL MCH 27.7 (27.0-31.0) pg MCHC 30.5 L (32.0-36.0) g/dL RDW 18.8 H (11.5-14.5) % Plt Count 274 (150-300) 10^3/uL MPV 6.9 L (7.4-10.4) fL Neut % (Auto) 65.1 (50.0-70.0) % Lymph % (Auto) 18.6 L (20.0-40.0) % Floyd % (Auto) 5.9 (2.0-8.0) % Eos % (Auto) 9.8 H (1.0-3.0) % Baso % (Auto) 0.6 (0.0-1.0) % Neut # (Auto) 6.1 (2.5-7.0) 10^3/uL Lymph # (Auto) 1.8 (1.0-4.0) 10^3/uL Floyd # (Auto) 0.6 (0.1-0.8) 10^3/uL Eos # (Auto) 0.9 H (0.1-0.3) 10^3/uL Baso # (Auto) 0.1 (0.0-0.1) 10^3/uL PT 18.3 H (8.9-11.4) SEC INR 1.8 H (0.9-1.1) Sodium (136-145) mmol/L Potassium (3.3-5.3) mmol/L Chloride (98-115) mmol/L Carbon Dioxide (21.0-32.0) mmol/L BUN (6-25) mg/dL Creatinine (0.51-1.17) mg/dL Est Cr Clr Drug Dosing mL/min Estimated GFR (MDRD) mL/min Glucose (70-110) mg/dL POC Glucose 71 L (74-106) mg/dl Calcium (8.7-10.3) mg/dL Total Bilirubin (0.2-1.0) mg/dL AST (15-37) U/L ALT (12-78) U/L Alkaline Phosphatase (46-116) IU/L Total Protein (6.4-8.2) g/dL Albumin (3.00-4.80) g/dL Specimen Type Urine Color (YELLOW) Urine Appearance (CLEAR) Urine pH (5.0-9.0) Ur Specific Sidney (1.005-1.030) Urine Protein (NEGATIVE) mg/dL Urine Glucose (UA) (NEGATIVE) mg/dL Urine Ketones (NEGATIVE) mg/dL Urine Occult Blood (NEGATIVE) Urine Nitrite (NEGATIVE) Urine Bilirubin (NEGATIVE) Urine Urobilinogen (0.2-1.0) E.U./dL Ur Leukocyte Esterase (NEGATIVE) Urine RBC /HPF Urine WBC /HPF Ur Epithelial Cells /LPF Urine Bacteria (NONE TO FEW) /HPF Blood Type Gel Antibody Screen Crossmatch 02/14/17 Range/Units 07:10 WBC (5.0-10.0) 10^3/uL RBC (3.80-5.50) 10^6/uL Hgb (12.0-16.0) g/dL Hct (37.0-47.0) % MCV (82.0-92.0) fL MCH (27.0-31.0) pg MCHC (32.0-36.0) g/dL RDW (11.5-14.5) % Plt Count (150-300) 10^3/uL MPV (7.4-10.4) fL Neut % (Auto) (50.0-70.0) % Lymph % (Auto) (20.0-40.0) % Floyd % (Auto) (2.0-8.0) % Eos % (Auto) (1.0-3.0) % Baso % (Auto) (0.0-1.0) % Neut # (Auto) (2.5-7.0) 10^3/uL Lymph # (Auto) (1.0-4.0) 10^3/uL Floyd # (Auto) (0.1-0.8) 10^3/uL Eos # (Auto) (0.1-0.3) 10^3/uL Baso # (Auto) (0.0-0.1) 10^3/uL PT (8.9-11.4) SEC INR (0.9-1.1) Sodium 144 (136-145) mmol/L Potassium 3.9 (3.3-5.3) mmol/L Chloride 109 (98-115) mmol/L Carbon Dioxide 27.3 (21.0-32.0) mmol/L BUN 54 H* (6-25) mg/dL Creatinine 2.15 H (0.51-1.17) mg/dL Est Cr Clr Drug Dosing 18.70 mL/min Estimated GFR (MDRD) 22 mL/min Glucose 114 H (70-110) mg/dL POC Glucose (74-106) mg/dl Calcium 8.7 (8.7-10.3) mg/dL Total Bilirubin (0.2-1.0) mg/dL AST (15-37) U/L ALT (12-78) U/L Alkaline Phosphatase (46-116) IU/L Total Protein (6.4-8.2) g/dL Albumin (3.00-4.80) g/dL Specimen Type Urine Color (YELLOW) Urine Appearance (CLEAR) Urine pH (5.0-9.0) Ur Specific Sidney (1.005-1.030) Urine Protein (NEGATIVE) mg/dL Urine Glucose (UA) (NEGATIVE) mg/dL Urine Ketones (NEGATIVE) mg/dL Urine Occult Blood (NEGATIVE) Urine Nitrite (NEGATIVE) Urine Bilirubin (NEGATIVE) Urine Urobilinogen (0.2-1.0) E.U./dL Ur Leukocyte Esterase (NEGATIVE) Urine RBC /HPF Urine WBC /HPF Ur Epithelial Cells /LPF Urine Bacteria (NONE TO FEW) /HPF Blood Type Gel Antibody Screen Crossmatch Med Orders - Current: Current Medications Acetaminophen (Tylenol) 650 mg PO TID@0800,1100,[facility] Allopurinol (Zyloprim) 100 mg PO DAILY@2100 [facility] Last Admin: 02/13/17 20:05 Dose: 100 mg Aspirin (Aspirin) 81 mg PO DAILY@2100 [facility] Carvedilol (Coreg) 6.25 mg PO BIDMEALS [facility] Last Admin: 02/13/17 20:01 Dose: 6.25 mg Cholecalciferol (Vitamin D3) 1,000 units PO DAILY [facility] Diltiazem HCl (Cardizem Cd) 180 mg PO DAILY@2100 [facility] Last Admin: 02/13/17 20:06 Dose: 180 mg Docusate Sodium (Colace 50 Mg/5 Ml Liquid) 100 mg PO DAILY [facility] Ferrous Sulfate (Ferrous Sulfate) 300 mg PO DAILY@2100 [facility] Glipizide (Glucotrol) 2.5 mg PO DAILY@1800 [facility] Last Admin: 02/13/17 19:59 Dose: 2.5 mg Sodium Chloride (Normal Saline) 1,000 mls @ 100 mls/hr IV ASDIRECTED [facility] Last Admin: 02/14/17 06:56 Dose: 100 mls/hr Miscellaneous Information (Remove Patch) 1 ea TRDERM DAILY@2199 [facility] Last Admin: 02/13/17 22:30 Dose: 1 ea Ptom Dialyite (Tab) 1 tab PO DAILY@2100 [facility] Last Admin: 02/13/17 20:05 Dose: 1 tab Ptom Salonpas (Patch) 1 each TOP DAILY@1000 [facility] Phytonadione (Vitamin K) 200 mcg PO DAILY@1800 [facility] Last Admin: 02/13/17 20:01 Dose: 200 mcg Sertraline HCl (Zoloft) 50 mg PO DAILY@2100 [facility] Last Admin: 02/13/17 20:05 Dose: 50 mg Tramadol HCl (Ultram) 50 mg PO BID PRN PRN Reason: pain Vitamin A/Vitamin D (Vitamins A And D) 0 gm TOP DAILY [facility] Warfarin Sodium (Coumadin) 2.5 mg PO MO@1800 [facility] Warfarin Sodium (Coumadin) 5 mg PO SUTUWETHFRSA@1800 [facility] Last Admin: 02/13/17 20:01 Dose: 5 mg Discontinued Medications Acetaminophen (Tylenol Arthritis Pain) 650 mg PO TID@0800,1100,1700 [facility] Last Admin: 02/13/17 19:59 Dose: 650 mg Aspirin (Halfprin) 81 mg PO DAILY@2099 [facility] Last Admin: 02/13/17 20:06 Dose: 81 mg Docusate Sodium (Colace) 100 mg PO DAILY [facility] Ferrous Sulfate (Ferrous Sulfate) 325 mg PO DAILY@2099 [facility] Last Admin: 02/13/17 20:05 Dose: 325 mg - Exam General: Alert, Oriented, Cooperative, No Acute Distress Neck: Trachea Midline, No JVD, No Thyromegaly, +2 Carotid Pulse wo Bruit Lungs: Rhonchi Cardiovascular: Regular Rate, Regular Rhythm. No: Murmurs GI/Abdominal Exam: No: No Distention Back Exam: No: CVA Tenderness (L), CVA Tenderness (R) Extremities: Pedal Edema Peripheral Pulses: 2+: Radial (L), Radial (R) Skin: Warm, Dry, Intact Psy/Mental Status: Depressed, Other (extremely flat affect--chronic for her. ) - Problem List Review Problem List Initiated/Reviewed/Updated: Yes - My Orders Last 24 Hours: My Active Orders 02/13/17 13:30 Oxygen Therapy [RC] ASDIRECTED - Plan Plan:: BRIEF HISTORY 76-year-old female resident of a long-term care center was admitted yesterday due to elevation in her creatinine clearance low-grade fever. 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 She been followed by urologist last week with an elevation of her creatinine to 1.74, and had been receiving fluids here at [facility]. Her creatinine on admission was 2.48 BUS 49. She does have significant depression in which the spouse feels the patient has giving up on most of her cares and she has refused IV fluids in the past. He does have a history of mild dementia. She is a DO NOT RESUSCITATE She did have a slightly elevated white count on admission. Pertinent diagnostics WBC, 13.3 on admission now 9.5 Hgb 7.2 Chest x-ray, flattened diaphragms, no acute consolidation UA positive for UTI Update since admission, BUN/creatinine improving, hemoglobin decrease to 7.2. VSS, no fever, white count normal now Primary impression, Anemia, normocytic, normochromic, anisocytosis, likely ACD renal, however significant drop past month, FOB testing, currently refusing blood transfusion. VSS, continue IV fluids for now. Strategies to assist patient with decision- making skills. On Iron, Will see if she changes her mind. In the meantime Venofer 50 mg IV 5 doses. Monthly Aranesp 40mcg Asymptomatic bacteriuria, in light of her CKD, will treat with Rocephin 1 g IV push daily RUPERTO/CKD, acute on chronic, prerenal, continue IV fluids. Her baseline creatinine is around 1.5. BUN/creatinine decreasing. Hold diuretics Depression, profound, chronic, will increase Zoloft, entertain adjunctive treatment pharmacological, family refusing professional intervention/psychiatry Other chronic medical conditions D2TM, high risk med glipizide, BGs reviewed HFpEF, Chronic diastolic, EF 75%, mild PAH, loop diuretics, hold for now HTN, stable. HLD, Pravastatin 40mg. CAD, ASA, asymptomatic. Carotid studies, bilateral plaquing, Less than 50% stenosis PVD, statin therapy OA, scheduled Tylenol with tramadol only PRN and based off level of function Atrial fibrillation, chronic, CVR on BB, CCB, anticoagulation/Coumadin, vitamin K, INR 1.8. [id number] score 4 Secondary hyperparathyroidism, Recent decrease in her Calcitriol Vascular dementia Gout, renal dose allopurinol CODE STATUS. DO NOT RESUSCITATE Overall plan Decrease IV fluids, add Mucinex, nephrology consultation will attempt to place patient on IV Venofer along with monthly Aranesp treatments. Right now hold diuretics, increase Zoloft, strict I's and O's and daily weights, possible blood transfusion, monitor her hemoglobin, assess stools for occult blood, labs in a.m.
[2017-02-14] MEDS: Acetaminophen 325 MG Tab PO SCH ×2 (10:33→18:12)
[2017-02-14] MEDS: Docusate Sodium Liquid 100 MG/10 ML UD Cup PO SCH (10:33)
[2017-02-14] MEDS: Cholecalciferol (Vitamin D3) 1,000 Unit Tab PO SCH (10:34)
[2017-02-14] MEDS: Acetaminophen 650 MG Tab.ER PO SCH (10:50)
[2017-02-14] MEDS: SALONPAS TOP SCH (11:34)
[2017-02-14] MEDS: guaiFENesin 100 MG/5 ML Soln 10 ML UD Cup PO SCH ×2 (12:15→18:13)
[2017-02-14] MEDS: cefTRIAXone 1 GM Vial IVPUSH SCH (13:08)
[2017-02-14] MEDS: Warfarin 5 MG Tab PO SCH (18:14)
[2017-02-14] MEDS: Phytonadione 100 MCG Tab PO SCH (18:14)
[2017-02-14] MEDS: glipiZIDE 5 MG Tab PO SCH (18:14)
[2017-02-14] MEDS: [UNRECOGNIZED DRUG - OTHER] PO SCH (20:03)
[2017-02-14] MEDS: Diltiazem 180 MG Cap.CD PO SCH (20:03)
[2017-02-14] MEDS: Aspirin 81 MG Tab.Chew PO SCH (20:07)
[2017-02-14] MEDS: Sertraline 50 MG Tab PO SCH (20:07)
[2017-02-14] MEDS: Calcitriol 0.25 MCG Cap PO SCH (20:07)
[2017-02-14] MEDS: Allopurinol 100 MG Tab PO SCH (20:07)
[2017-02-14] MEDS: Ferrous Sulfate Liq 300 MG/5 ML Cup PO SCH (20:08)
[2017-02-14] MEDS: REMOVE SALONPAS TRDERM SCH (22:10)
[2017-02-15] MEDS: guaiFENesin 100 MG/5 ML Soln 10 ML UD Cup PO SCH ×4 (01:02→17:38)
[2017-02-15] MEDS: Sodium Chloride 0.9% 1,000 ML IV SCH (08:45)
[2017-02-15] MEDS: Acetaminophen 325 MG Tab PO SCH ×3 (08:52→17:38)
[2017-02-15] MEDS: Carvedilol 6.25 MG Tab PO SCH ×2 (08:52→18:04)
[2017-02-15] MEDS: Docusate Sodium Liquid 100 MG/10 ML UD Cup PO SCH (08:53)
[2017-02-15] MEDS: Cholecalciferol (Vitamin D3) 1,000 Unit Tab PO SCH (08:53)
[2017-02-15] MEDS: Vitamins A and D Oint 56.7 GM Tube TOP SCH (08:55)
[2017-02-15] MEDS: SALONPAS TOP SCH (09:07)
--- NOTE | 2017-02-15 09:27 | PCM.PN ---
- General Info Date of Service: 02/15/17 Functional Status: Reports: Pain Controlled, Tolerating Diet, Urinating. Denies : Ambulating, New Symptoms, Incentive Spirometry (Incentive spirometer at bedside however patient was not using it) - Review of Systems General: Denies: Fever, Weakness, Fatigue, Night Sweats, Appetite HEENT: Reports: No Symptoms Pulmonary: Reports: Shortness of Breath, Cough (Cough much improved) Cardiovascular: Reports: Edema. Denies: Orthopnea, PND Gastrointestinal: Denies: Melena Genitourinary: Reports: No Symptoms Musculoskeletal: Reports: No Symptoms Skin: Reports: Pallor Neurological: Reports: Difficulty Walking. Denies: Confusion Psychiatric: Reports: Other (Flat affect however seems in slightly better mood) - Patient Data Vitals - Most Recent: Last Vital Signs Temp 98 F 02/15/17 06:45 Pulse 68 02/15/17 08:52 Resp 18 02/15/17 06:45 BP 151/80 H 02/15/17 08:52 Pulse Ox 97 02/15/17 07:25 Weight - Most Recent: 182 lb 6.4 oz I&O - Last 24 Hours: Intake & Output 02/14/17 02/15/17 02/15/17 22:59 06:59 14:59 Intake Total 1798 554 Output Total 350 300 Balance 1448 254 Lab Results Last 24 Hours: Laboratory Results - last 24 hr 02/14/17 02/15/17 02/15/17 Range/Units 17:56 06:30 07:10 WBC (5.0-10.0) 10^3/uL RBC (3.80-5.50) 10^6/uL Hgb (12.0-16.0) g/dL Hct (37.0-47.0) % MCV (82.0-92.0) fL MCH (27.0-31.0) pg MCHC (32.0-36.0) g/dL RDW (11.5-14.5) % Plt Count (150-300) 10^3/uL MPV (7.4-10.4) fL Neut % (Auto) (50.0-70.0) % Lymph % (Auto) (20.0-40.0) % [place] % (Auto) (2.0-8.0) % Eos % (Auto) (1.0-3.0) % Baso % (Auto) (0.0-1.0) % Neut # (Auto) (2.5-7.0) 10^3/uL Lymph # (Auto) (1.0-4.0) 10^3/uL [place] # (Auto) (0.1-0.8) 10^3/uL Eos # (Auto) (0.1-0.3) 10^3/uL Baso # (Auto) (0.0-0.1) 10^3/uL PT 24.9 H (8.9-11.4) SEC INR 2.5 H (0.9-1.1) Sodium (136-145) mmol/L Potassium (3.3-5.3) mmol/L Chloride (98-115) mmol/L Carbon Dioxide (21.0-32.0) mmol/L BUN (6-25) mg/dL Creatinine (0.51-1.17) mg/dL Est Cr Clr Drug Dosing mL/min Estimated GFR (MDRD) mL/min Glucose (70-110) mg/dL POC Glucose 146 H 86 (74-106) mg/dl Calcium (8.7-10.3) mg/dL 02/15/17 02/15/17 Range/Units 07:10 07:10 WBC 9.2 (5.0-10.0) 10^3/uL RBC 2.59 L (3.80-5.50) 10^6/uL Hgb 7.2 L (12.0-16.0) g/dL Hct 23.4 L (37.0-47.0) % MCV 90.5 (82.0-92.0) fL MCH 27.8 (27.0-31.0) pg MCHC 30.7 L (32.0-36.0) g/dL RDW 18.7 H (11.5-14.5) % Plt Count 253 (150-300) 10^3/uL MPV 6.3 L (7.4-10.4) fL Neut % (Auto) 69.6 (50.0-70.0) % Lymph % (Auto) 12.6 L (20.0-40.0) % [place] % (Auto) 6.7 (2.0-8.0) % Eos % (Auto) 10.2 H (1.0-3.0) % Baso % (Auto) 0.9 (0.0-1.0) % Neut # (Auto) 6.4 (2.5-7.0) 10^3/uL Lymph # (Auto) 1.2 (1.0-4.0) 10^3/uL [place] # (Auto) 0.6 (0.1-0.8) 10^3/uL Eos # (Auto) 0.9 H (0.1-0.3) 10^3/uL Baso # (Auto) 0.1 (0.0-0.1) 10^3/uL PT (8.9-11.4) SEC INR (0.9-1.1) Sodium 141 (136-145) mmol/L Potassium 3.6 (3.3-5.3) mmol/L Chloride 106 (98-115) mmol/L Carbon Dioxide 25.0 (21.0-32.0) mmol/L BUN 47 H (6-25) mg/dL Creatinine 1.99 H (0.51-1.17) mg/dL Est Cr Clr Drug Dosing 20.21 mL/min Estimated GFR (MDRD) 24 mL/min Glucose 85 (70-110) mg/dL POC Glucose (74-106) mg/dl Calcium 8.7 (8.7-10.3) mg/dL Marv Results Last 24 Hours: Microbiology 02/14/17 18:50 Occult Blood (FIT) - Final Stool / Feces Med Orders - Current: Current Medications Acetaminophen (Tylenol) 650 mg PO TID@0800,1100,1700 [facility] Last Admin: 02/15/17 08:52 Dose: 650 mg Allopurinol (Zyloprim) 100 mg PO DAILY@2099 [facility] Last Admin: 02/14/17 20:07 Dose: 100 mg Aspirin (Aspirin) 81 mg PO DAILY@2099 [facility] Last Admin: 02/14/17 20:07 Dose: 81 mg Calcitriol (Rocaltrol) 0.25 mcg PO MOWEFR@2099 [facility] Last Admin: 02/14/17 20:07 Dose: 0.25 mcg Carvedilol (Coreg) 6.25 mg PO BIDME [facility] Last Admin: 02/15/17 08:52 Dose: 6.25 mg Ceftriaxone Sodium (Rocephin) 1 gm IVPUSH Q24H [facility] Last Admin: 02/14/17 13:08 Dose: 1 gm Cholecalciferol (Vitamin D3) 1,000 units PO DAILY [facility] Last Admin: 02/15/17 08:53 Dose: 1,000 units Diltiazem HCl (Cardizem Cd) 180 mg PO DAILY@2100 [facility] Last Admin: 02/14/17 20:03 Dose: 180 mg Docusate Sodium (Colace 50 Mg/5 Ml Liquid) 100 mg PO DAILY [facility] Last Admin: 02/15/17 08:53 Dose: 100 mg Ferrous Sulfate (Ferrous Sulfate) 300 mg PO DAILY@2099 [facility] Last Admin: 02/14/17 20:08 Dose: 300 mg Glipizide (Glucotrol) 2.5 mg PO DAILY@1799 [facility] Last Admin: 02/14/17 18:14 Dose: 2.5 mg Guaifenesin (Robitussin) 400 mg PO Q6H [facility] Last Admin: 02/15/17 06:47 Dose: Not Given Sodium Chloride (Normal Saline) 1,000 mls @ 75 mls/hr IV ASDIRECTED [facility] Last Admin: 02/15/17 08:45 Dose: 75 mls/hr Miscellaneous Information (Remove Patch) 1 ea TRDERM DAILY@2199 [facility] Last Admin: 02/14/17 22:10 Dose: 1 ea Ptom Dialyite (Tab) 1 tab PO DAILY@2099 [facility] Last Admin: 02/14/17 20:03 Dose: 1 tab Ptom Salonpas (Patch) 1 each TOP DAILY@1000 [facility] Last Admin: 02/15/17 09:07 Dose: 1 each Phytonadione (Vitamin K) 200 mcg PO DAILY@1800 [facility] Last Admin: 02/14/17 18:14 Dose: 200 mcg Sertraline HCl (Zoloft) 75 mg PO DAILY@2099 [facility] Last Admin: 02/14/17 20:07 Dose: 75 mg Tramadol HCl (Ultram) 50 mg PO BID PRN PRN Reason: pain Vitamin A/Vitamin D (Vitamin A & D) 0 gm TOP DAILY [facility] Last Admin: 02/15/17 08:55 Dose: 1 applic Warfarin Sodium (Coumadin) 2.5 mg PO MO@1800 [facility] Warfarin Sodium (Coumadin) 5 mg PO SUTUWETHFRSA@1800 [facility] Last Admin: 02/14/17 18:14 Dose: 5 mg Discontinued Medications Acetaminophen (Tylenol Arthritis Pain) 650 mg PO TID@0800,1100,1700 [facility] Last Admin: 02/14/17 10:50 Dose: Not Given Aspirin (Halfprin) 81 mg PO DAILY@2100 [facility] Last Admin: 02/13/17 20:06 Dose: 81 mg Docusate Sodium (Colace) 100 mg PO DAILY [facility] Last Admin: 02/14/17 10:50 Dose: Not Given Ferrous Sulfate (Ferrous Sulfate) 325 mg PO DAILY@2100 [facility] Last Admin: 02/13/17 20:05 Dose: 325 mg Sodium Chloride (Normal Saline) 1,000 mls @ 100 mls/hr IV ASDIRECTED [facility] Last Admin: 02/14/17 06:56 Dose: 100 mls/hr Iron Sucrose 50 mg/ Sodium (Chloride) 102.5 mls @ 400 mls/hr IV ONETIME ONE Stop: 02/14/17 12:44 Last Admin: 02/14/17 13:18 Dose: Not Given Iron Sucrose 50 mg/ Sodium (Chloride) 102.5 mls @ 102.5 mls/hr IV ONETIME ONE Stop: 02/14/17 13:59 Last Admin: 02/14/17 13:08 Dose: 102.5 mls/hr Sertraline HCl (Zoloft) 50 mg PO DAILY@2100 [facility] Last Admin: 02/13/17 20:05 Dose: 50 mg Vitamin A/Vitamin D (Vitamins A And D) 0 gm TOP DAILY [facility] Last Admin: 02/14/17 10:49 Dose: Not Given - Exam Quality Assessment: Supplemental Oxygen (2 L nasal cannula, dropped to upper 80s on room air) General: Alert, Oriented, Cooperative, No Acute Distress Neck: No JVD Lungs: Clear to Auscultation, Normal Respiratory Effort Cardiovascular: Murmurs GI/Abdominal Exam: No Distention (Female) Exam: Deferred Back Exam: No: CVA Tenderness (L), CVA Tenderness (R) Peripheral Pulses: 2+: Radial (L), Radial (R) Skin: Other (Pallor) Neurological: Normal Speech Psy/Mental Status: Depressed - Problem List Review Problem List Initiated/Reviewed/Updated: Yes - My Orders Last 24 Hours: My Active Orders 02/14/17 10:58 Sertraline [Zoloft] 75 mg PO DAILY@2100 02/14/17 11:22 Incentive Spirometry [RT Incentive Spirometry] [RC] ASDIRECTED 02/14/17 11:30 Sodium Chloride 0.9% [Normal Saline] 1,000 ml IV ASDIRECTED guaiFENesin [Robitussin] 400 mg PO Q6H 02/14/17 12:30 cefTRIAXone [Rocephin] 1 gm IVPUSH Q24H 02/14/17 21:00 Calcitriol [Rocaltrol] 0.25 mcg PO MOWEFR@2100 - Plan Plan:: BRIEF HISTORY 76-year-old female resident of a long-term care center was admitted yesterday due to elevation in her creatinine clearance low-grade fever. 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 She been followed by urologist last week with an elevation of her creatinine to 1.74, and had been receiving fluids here at [facility]. Her creatinine on admission was 2.48 BUS 49. She does have significant depression in which the spouse feels the patient has giving up on most of her cares and she has refused IV fluids in the past. He does have a history of mild dementia. She is a DO NOT RESUSCITATE She did have a slightly elevated white count on admission. Pertinent diagnostics WBC, 13.3, now normal Hgb 7.2--stable Chest x-ray, flattened diaphragms, no acute consolidation UA positive for UTI--treating with Rocephin Update since admission, BUN/creatinine improving, hemoglobin stable at 7.2. VSS , no fever, white count normal now. Refusing transfusions Primary impression, Anemia, normocytic, normochromic, anisocytosis, likely ACD renal questionable GI pathology as occult blood positive. Significant drop past month, family and patient agreed with 1 unit of blood transfusion today. Lasix 20 mg after unit. Aranesp along with iron infusions VSS, continue IV fluids for now. Strategies to assist patient with decision-making skills. In the meantime Venofer 50 mg IV 5 doses. Monthly Aranesp 40mcg. Add PPI Asymptomatic bacteriuria, in light of her CKD, continue with Rocephin 1 g IV push daily RUPERTO/CKD, acute on chronic, prerenal, BUN/creatinine improving, no signs of fluid overload, continue IV fluids. Her baseline creatinine is around 1.5. BUN/ creatinine decreasing. Creatinine nearing baseline. Continue holding diuretics, lungs improving, no JVD, Depression, profound, chronic, yesterday increase Zoloft to 75 mg. entertain adjunctive treatment pharmacological, family refusing professional intervention/ psychiatry Other chronic medical conditions D2TM, high risk med glipizide, BGs reviewed--acceptable HFpEF, Chronic diastolic, EF 75%, mild PAH, loop diuretics, hold for now HTN, stable. Slightly mild SBP HLD, Pravastatin 40mg. CAD, ASA, asymptomatic. Carotid studies, bilateral plaquing, Less than 50% stenosis PVD, statin therapy OA, scheduled Tylenol with tramadol only PRN and based off level of function Atrial fibrillation, chronic, CVR on BB, CCB, anticoagulation/Coumadin, vitamin K, INR therapeutic. [id number] score 4 Secondary hyperparathyroidism, Recent decrease in her Calcitriol Vascular dementia. Gout, renal dose allopurinol CODE STATUS. DO NOT RESUSCITATE Overall plan Decrease IV fluids slightly, transfuse 1 unit packed red blood cells today. continue treating UTI, incentive spirometer return demonstration encourage, Venofer transfusion. strict I's and O's and daily weights, patient is refusing colonoscopy. Add PPI, Long discussion with family regarding risks versus benefits for ongoing treatment/transfusions. Possible discharge within 24-48 hours. More aggressive pulmonary toileting today to wean off oxygen if possible.
[2017-02-15] MEDS ORDERED: Sodium Chloride 0.9% 1,000 ML IV SCH (09:30)
[2017-02-15] MEDS: Pantoprazole 40 MG Vial IVPUSH SCH (10:20)
[2017-02-15] MEDS: cefTRIAXone 1 GM Vial IVPUSH SCH (14:44)
[2017-02-15] MEDS: Warfarin 5 MG Tab PO SCH (18:05)
[2017-02-15] MEDS: glipiZIDE 5 MG Tab PO SCH (18:05)
[2017-02-15] MEDS: Phytonadione 100 MCG Tab PO SCH (18:06)
[2017-02-15] MEDS: Aspirin 81 MG Tab.Chew PO SCH (20:03)
[2017-02-15] MEDS: Diltiazem 180 MG Cap.CD PO SCH (20:05)
[2017-02-15] MEDS: [UNRECOGNIZED DRUG - OTHER] PO SCH (20:05)
[2017-02-15] MEDS: Ferrous Sulfate Liq 300 MG/5 ML Cup PO SCH (20:10)
[2017-02-15] MEDS: Allopurinol 100 MG Tab PO SCH (20:10)
[2017-02-15] MEDS: Sertraline 50 MG Tab PO SCH (20:10)
[2017-02-16] MEDS: guaiFENesin 100 MG/5 ML Soln 10 ML UD Cup PO SCH ×5 (00:08→22:52)
[2017-02-16] MEDS: Acetaminophen 325 MG Tab PO SCH ×3 (08:39→17:15)
[2017-02-16] MEDS: Carvedilol 6.25 MG Tab PO SCH ×2 (08:39→17:16)
[2017-02-16] MEDS: Docusate Sodium Liquid 100 MG/10 ML UD Cup PO SCH (08:40)
[2017-02-16] MEDS: Vitamins A and D Oint 56.7 GM Tube TOP SCH (08:40)
[2017-02-16] MEDS: Cholecalciferol (Vitamin D3) 1,000 Unit Tab PO SCH (08:41)
[2017-02-16] MEDS ORDERED: Furosemide 40 MG/4 ML VIAL IVPUSH ONE (09:00)
[2017-02-16] MEDS: SALONPAS TOP SCH (09:05)
--- NOTE | 2017-02-16 09:21 | PCM.PN ---
- General Info Date of Service: 02/16/17 Functional Status: Reports: Pain Controlled, Tolerating Diet, Urinating, New Symptoms (More short of breath today rails today mild JVD today), Incentive Spirometry. Denies: Ambulating - Review of Systems General: Reports: Weakness. Denies: Fever HEENT: Reports: No Symptoms Pulmonary: Reports: Shortness of Breath, Sputum Cardiovascular: Reports: Orthopnea, Edema. Denies: Chest Pain, PND Gastrointestinal: Denies: Abdominal Pain, Constipation, Melena Genitourinary: Reports: No Symptoms Musculoskeletal: Reports: No Symptoms Skin: Reports: Pallor Neurological: Reports: Difficulty Walking, Weakness, Gait Disturbance. Denies: Confusion, Dizziness Psychiatric: Reports: Mood Lability - Patient Data Vitals - Most Recent: Last Vital Signs Temp 98.5 F 02/16/17 06:10 Pulse 61 02/16/17 08:39 Resp 18 02/16/17 06:10 BP 146/86 H 02/16/17 08:39 Pulse Ox 92 L 02/16/17 07:40 Weight - Most Recent: 182 lb 6.4 oz I&O - Last 24 Hours: Intake & Output 02/15/17 02/16/17 02/16/17 22:59 06:59 14:59 Intake Total 1090 299 Balance 1090 299 Lab Results Last 24 Hours: Laboratory Results - last 24 hr 02/13/17 02/15/17 02/16/17 Range/Units 11:10 17:35 06:29 Hgb (12.0-16.0) g/dL PT (8.9-11.4) SEC INR (0.9-1.1) Sodium (136-145) mmol/L Potassium (3.3-5.3) mmol/L Chloride (98-115) mmol/L Carbon Dioxide (21.0-32.0) mmol/L BUN (6-25) mg/dL Creatinine (0.51-1.17) mg/dL Est Cr Clr Drug Dosing mL/min Estimated GFR (MDRD) mL/min Glucose (70-110) mg/dL POC Glucose 127 H 88 (74-106) mg/dl Calcium (8.7-10.3) mg/dL Blood Type A POSITIVE Gel Antibody Screen Negative Crossmatch See Detail 02/16/17 02/16/17 02/16/17 Range/Units 07:15 07:15 07:15 Hgb 8.6 L (12.0-16.0) g/dL PT 30.9 H (8.9-11.4) SEC INR 3.1 H (0.9-1.1) Sodium 141 (136-145) mmol/L Potassium 4.1 (3.3-5.3) mmol/L Chloride 106 (98-115) mmol/L Carbon Dioxide 25.0 (21.0-32.0) mmol/L BUN 43 H (6-25) mg/dL Creatinine 2.09 H (0.51-1.17) mg/dL Est Cr Clr Drug Dosing 19.24 mL/min Estimated GFR (MDRD) 23 mL/min Glucose 88 (70-110) mg/dL POC Glucose (74-106) mg/dl Calcium 8.9 (8.7-10.3) mg/dL Blood Type Gel Antibody Screen Crossmatch Med Orders - Current: Current Medications Acetaminophen (Tylenol) 650 mg PO TID@0800,1100,1700 [facility] Last Admin: 02/16/17 08:39 Dose: 650 mg Allopurinol (Zyloprim) 100 mg PO DAILY@2099 [facility] Last Admin: 02/15/17 20:10 Dose: 100 mg Aspirin (Aspirin) 81 mg PO DAILY@2099 [facility] Last Admin: 02/15/17 20:03 Dose: 81 mg Calcitriol (Rocaltrol) 0.25 mcg PO MOWEFR@2100 [facility] Last Admin: 02/14/17 20:07 Dose: 0.25 mcg Carvedilol (Coreg) 6.25 mg PO BIDMEALS [facility] Last Admin: 02/16/17 08:39 Dose: 6.25 mg Ceftriaxone Sodium (Rocephin) 1 gm IVPUSH Q24H [facility] Last Admin: 02/15/17 14:44 Dose: 1 gm Cholecalciferol (Vitamin D3) 1,000 units PO DAILY [facility] Last Admin: 02/16/17 08:41 Dose: 1,000 units Diltiazem HCl (Cardizem Cd) 180 mg PO DAILY@2100 [facility] Last Admin: 02/15/17 20:05 Dose: 180 mg Docusate Sodium (Colace 50 Mg/5 Ml Liquid) 100 mg PO DAILY [facility] Last Admin: 02/16/17 08:40 Dose: 100 mg Ferrous Sulfate (Ferrous Sulfate) 300 mg PO DAILY@2100 [facility] Last Admin: 02/15/17 20:10 Dose: 300 mg Glipizide (Glucotrol) 2.5 mg PO DAILY@1800 [facility] Last Admin: 02/15/17 18:05 Dose: 2.5 mg Guaifenesin (Robitussin) 400 mg PO Q6H [facility] Last Admin: 02/16/17 05:58 Dose: Not Given Sodium Chloride (Normal Saline) 1,000 mls @ 65 mls/hr IV ASDIRECTED [facility] Miscellaneous Information (Remove Patch) 1 ea TRDERM DAILY@2199 [facility] Last Admin: 02/16/17 00:00 Dose: 1 ea Ptom Dialyite (Tab) 1 tab PO DAILY@2099 [facility] Last Admin: 02/15/17 20:05 Dose: 1 tab Non-Formulary Medication (Pravastatin) 40 mg PO DAILY@2099 [facility] Pantoprazole Sodium (Protonix Iv) 40 mg IVPUSH DAILY [facility] Last Admin: 02/15/17 10:20 Dose: 40 mg Ptom Salonpas (Patch) 1 each TOP DAILY@1000 [facility] Last Admin: 02/15/17 09:07 Dose: 1 each Phytonadione (Vitamin K) 200 mcg PO DAILY@1800 [facility] Last Admin: 02/15/17 18:06 Dose: 200 mcg Sertraline HCl (Zoloft) 75 mg PO DAILY@2099 [facility] Last Admin: 02/15/17 20:10 Dose: 75 mg Tramadol HCl (Ultram) 50 mg PO BID PRN PRN Reason: pain Vitamin A/Vitamin D (Vitamin A & D) 0 gm TOP DAILY [facility] Last Admin: 02/16/17 08:40 Dose: 1 applic Warfarin Sodium (Coumadin) 2.5 mg PO MO@1800 [facility] Warfarin Sodium (Coumadin) 5 mg PO SUTUWETHFRSA@1800 [facility] Last Admin: 02/15/17 18:05 Dose: 5 mg Discontinued Medications Acetaminophen (Tylenol Arthritis Pain) 650 mg PO TID@0800,1100,1700 [facility] Last Admin: 02/14/17 10:50 Dose: Not Given Aspirin (Halfprin) 81 mg PO DAILY@2100 [facility] Last Admin: 02/13/17 20:06 Dose: 81 mg Docusate Sodium (Colace) 100 mg PO DAILY [facility] Last Admin: 02/14/17 10:50 Dose: Not Given Ferrous Sulfate (Ferrous Sulfate) 325 mg PO DAILY@2099 [facility] Last Admin: 02/13/17 20:05 Dose: 325 mg Sodium Chloride (Normal Saline) 1,000 mls @ 100 mls/hr IV ASDIRECTED [facility] Last Admin: 02/14/17 06:56 Dose: 100 mls/hr Sodium Chloride (Normal Saline) 1,000 mls @ 75 mls/hr IV ASDIRECTED [facility] Last Admin: 02/15/17 08:45 Dose: 75 mls/hr Iron Sucrose 50 mg/ Sodium (Chloride) 102.5 mls @ 400 mls/hr IV ONETIME ONE Stop: 02/14/17 12:44 Last Admin: 02/14/17 13:18 Dose: Not Given Iron Sucrose 50 mg/ Sodium (Chloride) 102.5 mls @ 102.5 mls/hr IV ONETIME ONE Stop: 02/14/17 13:59 Last Admin: 02/14/17 13:08 Dose: 102.5 mls/hr Sertraline HCl (Zoloft) 50 mg PO DAILY@2099 [facility] Last Admin: 02/13/17 20:05 Dose: 50 mg Vitamin A/Vitamin D (Vitamins A And D) 0 gm TOP DAILY [facility] Last Admin: 02/14/17 10:49 Dose: Not Given - Exam Quality Assessment: Supplemental Oxygen General: Alert, Oriented, Mild Distress Neck: JVD Lungs: Rales, Rhonchi Cardiovascular: Regular Rate, Regular Rhythm. No: Gallops GI/Abdominal Exam: Soft. No: Distended Back Exam: No: CVA Tenderness (L), CVA Tenderness (R) Extremities: Normal Capillary Refill Peripheral Pulses: 2+: Radial (L), Radial (R) - Problem List Review Problem List Initiated/Reviewed/Updated: Yes - My Orders Last 24 Hours: My Active Orders 02/15/17 09:30 Pantoprazole [ProTONIX IV] 40 mg IVPUSH DAILY Sodium Chloride 0.9% [Normal Saline] 1,000 ml IV ASDIRECTED 02/16/17 21:00 Pravastatin 40 mg PO DAILY@2100 - Plan Plan:: BRIEF HISTORY 76-year-old female resident of a long-term care center was admitted due to elevation in her creatinine clearance and low-grade fever. 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 She been followed by urologist last week with an elevation of her creatinine to 1.74, and had been receiving fluids here at [facility]. Her creatinine on admission was 2.48 BUN 49. She does have significant depression in which the spouse feels the patient has giving up on most of her cares and she has refused IV fluids in the past. He does have a history of mild dementia. She did have a slightly elevated white count on admission. She is a DO NOT RESUSCITATE Pertinent admission diagnostics WBC, 13.3, now normal Hgb 7.2--stable Chest x-ray, flattened diaphragms, no acute consolidation UA positive for UTI--treating with Rocephin due to CKD Update since admission, BUN/creatinine improving, hemoglobin stable at 7.2. VSS , no fever, white count normal now. Refusing transfusions Primary impression, Anemia, normocytic, normochromic, anisocytosis/elevated RDW, likely ACD renal questionable GI pathology as occult blood positive. Significant drop hgb past month, received 1 unit blood transfusion yesterday with corresponding hgb/Hct ratio. Hgb 8.6. Started patient on Aranesp along with Venofer infusions VSS, Lasix after unit of blood was not given yesterday however will give today 40 mg 1. Saline lock fluids. Daily weights, Strategies to assist patient with decision-making skills. In the meantime Venofer 50 mg IV 5 doses. Monthly Aranesp 40mcg. Added PPI. Hold aspirin Asymptomatic bacteriuria, Treat due to her CKD, continue with Rocephin 1 g qd RUPERTO/CKD, acute on chronic, prerenal, BUN/creatinine overall improved since admission however still above 1.6 baseline. Mild hepatojugular reflux today since transfustion. Lasix today. HFpEF, Chronic, diastolic, EF 75%, mild PAH, despite CKD we'll give Lasix 1 today, chest x-ray. Not candidate for Entresto COPD; (newly clinical diagnosis) based off of symptoms, smoking hx and chest x- ray, no official PFTs, Start duo nebs and Pulmicort today. Family refusing official testing. O2 to keep sats 90-92%. Aggressive pulmonary toilet Depression, profound, chronic, increased her Zoloft this admission 75 mg. entertain adjunctive treatment pharmacological, family refusing professional intervention/psychiatry at this time. 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 Slightly mild SBP HLD, Pravastatin 40mg. CAD, home aspirin however holding it for now, asymptomatic. Carotid studies, bilateral plaquing, Less than 50% stenosis PVD, statin therapy, no myalgias OA, scheduled Tylenol with tramadol only PRN and based off level of function Atrial fibrillation, chronic, CVR on BB, CCB, anticoagulation/Coumadin, vitamin K, INR supra-therapeutic, hold dose Coumadin tonight. [id number] score 4 Secondary hyperparathyroidism, Recent decrease in her Calcitriol Vascular dementia, stable Gout, renal dose allopurinol CODE STATUS. DO NOT RESUSCITATE Overall plan Saline lock fluids, aggressive pulmonary toileting, repeat chest x-ray, Lasix 1 , add duo nebs and Pulmicort, Venofer transfusion. strict I's and O's and daily weights, Add PPI, Long discussion with family regarding risks versus benefits for ongoing treatment/transfusions. Possible discharge within 24-48 hours. More aggressive pulmonary toileting today to wean off oxygen if possible. May need oxygen on discharge.
[2017-02-16] MEDS: Pantoprazole 40 MG Vial IVPUSH SCH (09:49)
[2017-02-16] MEDS: cefTRIAXone 1 GM Vial IVPUSH SCH (12:31)
[2017-02-16] MEDS: Albuterol/Ipratropium 3.0-0.5 MG/3 ML Neb Soln NEB SCH ×3 (12:37→22:14)
[2017-02-16] MEDS: glipiZIDE 5 MG Tab PO SCH (17:16)
[2017-02-16] MEDS: Phytonadione 100 MCG Tab PO SCH (17:17)
[2017-02-16] MEDS: Budesonide 0.5 MG/2 ML Neb Susp NEB SCH (19:57)
[2017-02-16] MEDS: Diltiazem 180 MG Cap.CD PO SCH (20:08)
[2017-02-16] MEDS: [UNRECOGNIZED DRUG - OTHER] PO SCH (20:09)
[2017-02-16] MEDS: Ferrous Sulfate Liq 300 MG/5 ML Cup PO SCH (20:09)
[2017-02-16] MEDS: Sertraline 50 MG Tab PO SCH (20:10)
[2017-02-16] MEDS: Calcitriol 0.25 MCG Cap PO SCH (20:10)
[2017-02-16] MEDS: Allopurinol 100 MG Tab PO SCH (20:10)
[2017-02-16] MEDS ORDERED: Pravastatin 20 MG Tab PO SCH (21:00)
[2017-02-16] MEDS: REMOVE SALONPAS TRDERM SCH ×2 (22:13)
[2017-02-17] MEDS: Albuterol/Ipratropium 3.0-0.5 MG/3 ML Neb Soln NEB SCH ×2 (06:00→11:05)
[2017-02-17] MEDS: guaiFENesin 100 MG/5 ML Soln 10 ML UD Cup PO SCH ×2 (06:01→11:06)
[2017-02-17 07:52] VITALS: BP 181/97
[2017-02-17] MEDS: Budesonide 0.5 MG/2 ML Neb Susp NEB SCH (08:48)
[2017-02-17] MEDS: Pantoprazole 40 MG Vial IVPUSH SCH (08:51)
[2017-02-17] MEDS: Cholecalciferol (Vitamin D3) 1,000 Unit Tab PO SCH (09:00)
[2017-02-17] MEDS: Acetaminophen 325 MG Tab PO SCH ×2 (09:00→11:06)
[2017-02-17] MEDS: Docusate Sodium Liquid 100 MG/10 ML UD Cup PO SCH (09:01)
[2017-02-17] MEDS: Carvedilol 6.25 MG Tab PO SCH (09:01)
[2017-02-17] MEDS: Vitamins A and D Oint 56.7 GM Tube TOP SCH (09:01)
[2017-02-17] MEDS: SALONPAS TOP SCH (09:08)
[2017-02-19] MEDS ORDERED: Warfarin 2.5 MG Tab PO SCH (18:00)
--- NOTE | 2017-02-27 08:17 | DISCH ---
DISCHARGE DIAGNOSIS: 1. Acute kidney injury. 2. Chronic low-grade fever. 3. Diabetes mellitus type 2. 4. Hypertension. 5. Coronary artery disease. 6. Anemia of chronic disease. 7. Atrial fibrillation with Coumadin management. 8. Vascular dementia with depression. CONSULTATIONS: There were no consults obtained during her hospitalization. BRIEF HISTORY AND ESSENTIAL PHYSICAL FINDINGS: This is a 76-year-old female patient, who was initially seen in the clinical setting and was hospitalized due to abnormal BUN and creatinines. She has had a history of chronic kidney disease and has been seen by Nephrology, and has been placed on dialysis. Due to her abnormal kidney function she was given IV fluids. It was a recommendation of the volleyball assistant coach to have further fluids, but apparently the family decided not to proceed with that as she was a DNR. After further consideration and her fever the patient was admitted to the hospital for treatment of the low-grade fever and of the abnormal kidney functions with IV fluids. Over the course of her care she did progress in treatment and became as stable as possible. It was decided to discharge her back to the long-term care facility and she was placed on hospice. This was a joint decision of the patient and family. PHYSICAL EXAM ON DISCHARGE: HEENT: Head is normocephalic. Conjunctivae clear. No nasal drainage. CARDIOVASCULAR: Heart rate and rhythm are regular. S1, S2. RESPIRATORY: Lung sounds are clear to auscultation. ABDOMEN: Soft and nontender. Bowel sounds are present. EXTREMITIES: No lower extremity edema at present. SIGNIFICANT LABS XRAYS AND CONSULTATION FINDINGS: Her sodium prior to discharge was 142, potassium was 3.2, chlorides were 106, BUN of 40, and creatinine of 1.97. CONDITION TREATMENT AND FINAL DISPOSITION ON DISCHARGE AND PROGNOSIS: Please refer to discharge packets. She will be discharged to the long-term care facility and hospice will be following up for continued care at that facility. Family and patient were notified to contact hospital or clinical services should they have any questions or concerns. DISCHARGE MEDICATIONS: 1. Tylenol t.i.d. 2. Allopurinol daily. 3. Carvedilol 6.25 mg b.i.d. 4. Diltiazem 180 mg daily. 5. Colace daily. 6. Topical pain patch daily. 7. Zinc tablets daily. 8. Iron 325 mg daily. 9. Lidex cream as needed. 10.Lasix every Sunday and Sunday. 11.Pravachol 40 mg daily. 12.Coumadin. These medications will be evaluated per Hospice on her return to the long-term care facility and will be decided per that entity whether she should be continued on the current medications. /[id number]/MODL
== END 2017-02-17 12:30 | DRG 811 ==
LOC: KA.MS 10:20
PROVIDERS: ADMIT Physician Assistant Medical; ATTEND Family Medicine
PROC: 30233N1 Transfusion of Nonautologous Red Blood Cells into Peripheral Vein, Percutaneous Approach (ICD-10-PCS; principal; 2017-02-15)
DX: D64.9 Anemia, unspecified (principal); I50.33 Acute on chronic diastolic (congestive) heart failure; I13.0 Hypertensive heart and chronic kidney disease with heart failure and stage 1 through stage 4 chronic kidney disease, or unspecified chronic kidney disease; N17.9 Acute kidney failure, unspecified; R82.71 Bacteriuria; N18.9 Chronic kidney disease, unspecified; E11.22 Type 2 diabetes mellitus with diabetic chronic kidney disease; J44.9 Chronic obstructive pulmonary disease, unspecified; F03.90 Unspecified dementia, unspecified severity, without behavioral disturbance, psychotic disturbance, mood disturbance, and anxiety; Z66 Do not resuscitate; F32.9 Major depressive disorder, single episode, unspecified; E78.5 Hyperlipidemia, unspecified; I25.10 Atherosclerotic heart disease of native coronary artery without angina pectoris; I48.91 Unspecified atrial fibrillation; E21.3 Hyperparathyroidism, unspecified; M10.9 Gout, unspecified; Z79.899 Other long term (current) drug therapy
CPT/HCPCS: 36415; 36430; 71020; 80048; 80053; 81001; 82962; 85018; 85025; 85610; 86850; 86900; 86901; 86920; 86922; 94640; A9270-GY; C9113; G0328; J0696; J1756; J1940; J7030; J7050; P9016